=== PATIENT | female | born 1940 | race Caucasian/White ===

== ENCOUNTER → 2017-05-16 | Outpatient (CLI) | payer MEDICARE ==
[2017-05-16 08:52] LABS: ALBUMIN 3.4 gm/dl (3.1-4.5); BUN 20 mg/dl (7-24); CHLORIDE 106 mmol/L (98-107); CREATININE 0.99 mg/dL (0.55-1.02); POTASSIUM 4.2 mmol/L (3.5-5.1); SGOT/AST 10 IU/L (3-35); SGPT/ALT 19 U/L (12-78); SODIUM 141 mmol/L (136-145)
[2017-05-16 08:53] LABS: ALKALINE PHOSPHATASE 60 U/L (45-117); TOTAL PROTEIN 7.5 gm/dL (6.4-8.2)
== END | disposition home or self-care (01) ==
LOC: LAB 07:59
PROVIDERS: Family Medicine
DX: E11.65 Type 2 diabetes mellitus with hyperglycemia (principal)

== ENCOUNTER 2022-03-11 10:33 | Inpatient (IN) | payer MEDICARE ==
[~2022-03-11] VITALS: Ht 180.3 cm; Wt 88.6 kg
[2022-03-11 10:50] VITALS: BP 115/48
[2022-03-11 11:09] LABS: BILIRUBIN Negative (Negative); BLOOD 2+ (Negative); CLARITY Turbid (Clear); COLOR Yellow (Yellow); GLUCOSE Negative (Negative); KETONE Trace (Negative); LEUKO ESTERASE 3+ (Negative); NITRITE Negative (Negative); UROBILINOGEN 0.2 E.U./dl (0.0-1.0)
[2022-03-11 11:22] LABS: BACTERIA 4+; EPITHELIAL CELLS 21-30; MUCOUS 2+; RBC 16-20 rbc/hpf (0-2); WBC TNTC wbc/hpf (0-5)
[2022-03-11 11:53] LABS: HEMATOCRIT 31.4 % (37.0-47.0); MEAN CORPUSCULAR HGB 30.3 pg (27.0-31.0); MEAN CORPUSCULAR HGB CONC 34.4 g/dl (33.0-37.0); MEAN PLATELET VOLUME 9.8 fl (9.6-12.3); PLATELET COUNT AUTOMATED 252 10*3/uL (130-400); RED BLOOD COUNT 3.57 10*6/uL (4.10-5.10); WHITE BLOOD COUNT 22.6 10*3/uL (4.8-10.8)
[2022-03-11 11:54] LABS: MANUAL DIFF REFLEX YES
[2022-03-11 12:04] LABS: ACT PARTIAL THROMBO TIME 24.8 SECONDS (20.0-32.1)
[2022-03-11 12:11] LABS: TOTAL CELLS COUNTED 100 #CELLS; TOXIC GRANULATION SLIGHT; VACUOLATION OF NEUTROPHILS SLIGHT
[2022-03-11 12:12] LABS: BURR CELLS FEW; OVALOCYTES FEW; PLATELET SUFFICIENCY NORMAL (NORMAL); POLYCHROMASIA SLIGHT; ROULEAUX SLIGHT
[2022-03-11 12:19] LABS: POTASSIUM 5.2 mmol/L (3.5-5.1)
[2022-03-11 12:22] LABS: CREATININE 1.8 mg/dL (0.55-1.02); TOTAL PROTEIN 6.8 gm/dL (6.4-8.2)
[2022-03-11 15:22] LABS: CREATININE 1.76 mg/dL (0.55-1.02); POTASSIUM 5.4 mmol/L (3.5-5.1)
[2022-03-11 16:56] VITALS: BP 124/46
[2022-03-11] MEDS ORDERED: ATORVASTATIN CA40 M1 PO (17:53)
[2022-03-11] MEDS ORDERED: PERCOCET 5-3251 EACH PO (17:53)
[2022-03-11] MEDS ORDERED: ACTOS30 M1 PO (17:54)
[2022-03-11] MEDS ORDERED: METFORMIN HYD1000 MG PO (17:54)
[2022-03-11] MEDS ORDERED: ZESTRIL10 MG PO (17:54)
[2022-03-11 20:00] VITALS: BP 123/49; BP 131/61
[2022-03-12] VITALS: BP 132/61
[2022-03-12 05:31] LABS: CREATININE 1.39 mg/dL (0.55-1.02); FREE T4 1.29 ng/dl (0.76-1.46)
[2022-03-12 05:38] LABS: THYROID STIM HORMONE (HS) 0.941 uIU/ml (0.358-4.75)
[2022-03-12 05:53] LABS: POTASSIUM 4.1 mmol/L (3.5-5.1)
[2022-03-12 06:37] LABS: HEMATOCRIT 30.1 % (37.0-47.0); MEAN CELL VOLUME 90.9 fl (81.0-99.0); MEAN CORPUSCULAR HGB 31.4 pg (27.0-31.0); MEAN CORPUSCULAR HGB CONC 34.6 g/dl (33.0-37.0); MEAN PLATELET VOLUME 10.2 fl (9.6-12.3); NUCLEATED RED BLOOD CELL 0.1 % (0.0-0.0); PLATELET COUNT AUTOMATED 231 10*3/uL (130-400); RED BLOOD COUNT 3.31 10*6/uL (4.10-5.10); RED CELL DISTRI WIDTH 16.4 % (0-14.5); WHITE BLOOD COUNT 19.6 10*3/uL (4.8-10.8)
[2022-03-12 06:38] LABS: MANUAL DIFF REFLEX YES
[2022-03-12 07:05] LABS: TOTAL CELLS COUNTED 100 #CELLS; TOXIC GRANULATION SLIGHT; VACUOLATION OF NEUTROPHILS SLIGHT
[2022-03-12 07:06] LABS: BURR CELLS FEW; PLATELET SUFFICIENCY NORMAL (NORMAL); POLYCHROMASIA SLIGHT; SCHISTOCYTES FEW; TARGET CELLS FEW
[2022-03-12 07:34] LABS: VITAMIN D, 25-HYDROXY 29.6 ng/mL (30-100)
[2022-03-12 08:00] VITALS: BP 122/50
[2022-03-12 12:00] VITALS: BP 114/54
[2022-03-12 16:00] VITALS: BP 124/54; BP 160/84
[2022-03-12 20:00] VITALS: BP 123/64
[2022-03-13] VITALS: BP 121/45
[2022-03-13 06:09] LABS: CREATININE 1.2 mg/dL (0.55-1.02); POTASSIUM 3.6 mmol/L (3.5-5.1)
[2022-03-13 06:17] LABS: HEMATOCRIT 30.4 % (37.0-47.0); MEAN CELL VOLUME 88.9 fl (81.0-99.0); MEAN CORPUSCULAR HGB 30.4 pg (27.0-31.0); MEAN CORPUSCULAR HGB CONC 34.2 g/dl (33.0-37.0); MEAN PLATELET VOLUME 9.9 fl (9.6-12.3); NUCLEATED RED BLOOD CELL 0.1 10*3/uL (0.0-0.0); NUCLEATED RED BLOOD CELL 0.3 % (0.0-0.0); PLATELET COUNT AUTOMATED 233 10*3/uL (130-400); RED BLOOD COUNT 3.42 10*6/uL (4.10-5.10); RED CELL DISTRI WIDTH 16.5 % (0-14.5); WHITE BLOOD COUNT 16.4 10*3/uL (4.8-10.8)
[2022-03-13 06:24] LABS: MANUAL DIFF REFLEX YES
[2022-03-13 07:28] LABS: ACANTHOCYTES FEW; BURR CELLS MODERATE; PLATELET SUFFICIENCY NORMAL (NORMAL); SCHISTOCYTES FEW; TOTAL CELLS COUNTED 100 #CELLS
[2022-03-13 08:00] VITALS: BP 124/59
[2022-03-13 12:00] VITALS: BP 124/55
[2022-03-13 15:57] VITALS: BP 127/62
[2022-03-13 20:00] VITALS: BP 137/75
[2022-03-14] VITALS: BP 156/67
[2022-03-14 05:39] LABS: BUN 23 mg/dl (7-24); CHLORIDE 109 mmol/L (98-107); CREATININE 1.03 mg/dL (0.55-1.02); POTASSIUM 3.5 mmol/L (3.5-5.1); SODIUM 140 mmol/L (136-145)
[2022-03-14 06:21] LABS: HEMATOCRIT 29.4 % (37.0-47.0); MEAN CELL VOLUME 87.2 fl (81.0-99.0); MEAN CORPUSCULAR HGB CONC 34.4 g/dl (33.0-37.0); NUCLEATED RED BLOOD CELL 0.2 % (0.0-0.0); PLATELET COUNT AUTOMATED 254 10*3/uL (130-400); RED BLOOD COUNT 3.37 10*6/uL (4.10-5.10); RED CELL DISTRI WIDTH 16.7 % (0-14.5); WHITE BLOOD COUNT 13.2 10*3/uL (4.8-10.8)
[2022-03-14 06:30] LABS: MANUAL DIFF REFLEX YES
[2022-03-14 07:19] LABS: TOTAL CELLS COUNTED 100 #CELLS
[2022-03-14 07:21] LABS: PLATELET SUFFICIENCY NORMAL (NORMAL)
[2022-03-14 08:00] VITALS: BP 137/59
[2022-03-14 12:00] VITALS: BP 147/77
[2022-03-14 16:00] VITALS: BP 143/52
[2022-03-14 20:00] VITALS: BP 150/60; BP 167/63
[2022-03-15] VITALS: BP 114/57; BP 134/58
[2022-03-15 08:00] VITALS: BP 108/85
[2022-03-15] MEDS ORDERED: CEFTRIAXON2 GM/50 ML IV (09:11)
[2022-03-15] MEDS ORDERED: ZESTRIL10 MG PO (09:11)
[2022-03-15] MEDS ORDERED: METFORMIN HYD1000 MG PO (09:11)
[2022-03-15] MEDS ORDERED: ACTOS30 M1 PO (09:11)
[2022-03-15 09:19] LABS: HEMATOCRIT 33.4 % (37.0-47.0); MEAN CELL VOLUME 85.6 fl (81.0-99.0); MEAN CORPUSCULAR HGB 28.7 pg (27.0-31.0); MEAN CORPUSCULAR HGB CONC 33.5 g/dl (33.0-37.0); MEAN PLATELET VOLUME 9.4 fl (9.6-12.3); PLATELET COUNT AUTOMATED 305 10*3/uL (130-400); RED CELL DISTRI WIDTH 16.7 % (0-14.5); WHITE BLOOD COUNT 13.7 10*3/uL (4.8-10.8)
[2022-03-15 09:22] LABS: MANUAL DIFF REFLEX YES
[2022-03-15 09:33] LABS: CHLORIDE 109 mmol/L (98-107); POTASSIUM 3.5 mmol/L (3.5-5.1); SODIUM 139 mmol/L (136-145)
[2022-03-15 09:35] LABS: BUN 13 mg/dl (7-24)
[2022-03-15 09:38] LABS: TOTAL CELLS COUNTED 100 #CELLS
[2022-03-15 09:39] LABS: BURR CELLS FEW; PLATELET SUFFICIENCY NORMAL (NORMAL); TARGET CELLS FEW; TOXIC GRANULATION SLIGHT
[2022-03-15 09:40] LABS: OVALOCYTES FEW; POLYCHROMASIA SLIGHT; ROULEAUX SLIGHT; VACUOLATION OF NEUTROPHILS SLIGHT
[2022-03-15 12:00] VITALS: BP 139/52
== END 2022-03-15 15:22 | disposition short-term general hospital (02) | DRG 871 ==
LOC: ED 10:33 → EDHOLD 14:25 → 4E 14:25 → EDHOLD 14:44 → 4E 15:40
PROVIDERS: Emergency Medicine; Internal Medicine; Registered Nurse; Student in an Organized Health Care Education/Training Program; ADMIT Internal Medicine; ATTEND Internal Medicine
DX: A41.9 Sepsis, unspecified organism (principal); E43 Unspecified severe protein-calorie malnutrition; N17.0 Acute kidney failure with tubular necrosis; N30.01 Acute cystitis with hematuria; E87.1 Hypo-osmolality and hyponatremia; E87.20 Acidosis, unspecified; N13.6 Pyonephrosis; E87.5 Hyperkalemia; E86.0 Dehydration; I10 Essential (primary) hypertension; E11.9 Type 2 diabetes mellitus without complications; E78.5 Hyperlipidemia, unspecified; E66.09 Other obesity due to excess calories; D64.9 Anemia, unspecified; L89.159 Pressure ulcer of sacral region, unspecified stage; I87.2 Venous insufficiency (chronic) (peripheral); Z95.0 Presence of cardiac pacemaker; Z68.27 Body mass index [BMI] 27.0-27.9, adult